=== PATIENT | female | born 1955 | race Caucasian/White ===

== ENCOUNTER → 2019-01-23 | Outpatient (CLI) | payer BC | END | disposition home or self-care (01) | LOC: LAB 19:15 → LAB SHORT 19:15 | PROVIDERS: Nurse Practitioner | DX: Z01.419 Encounter for gynecological examination (general) (routine) without abnormal findings (principal); N95.2 Postmenopausal atrophic vaginitis | CPT/HCPCS: G0145 ==

== ENCOUNTER → 2022-07-20 | Outpatient (CLI) | payer OTHER ==
[~2022-07-20] MED LIST: DICY20 PO; EUCRISA60 GM TOP; GLUCHON PO; LEVOTHYROXINE50 MC1 PO; METR59TL TOP; MULVITA PO; Neurontin 100100 MG PO; TRAM50 PO
== END | disposition home or self-care (01) ==
LOC: LAB SHORT 12:00
DX: B35.1 Tinea unguium (principal); B35.3 Tinea pedis; L40.51 Distal interphalangeal psoriatic arthropathy; L40.3 Pustulosis palmaris et plantaris; L60.2 Onychogryphosis
CPT/HCPCS: 87220

== ENCOUNTER → 2022-07-20 | Outpatient (CLI) | payer OTHER | LOC: LAB SHORT 07:59 → LAB 07:59 | DX: L60.2 Onychogryphosis (principal); B35.1 Tinea unguium | CPT/HCPCS: 88305; 88312 ==

== ENCOUNTER 2023-01-11 11:19 | Emergency (ER) | payer OTHER ==
[~2023-01-11] VITALS: Ht 165.1 cm; Wt 81.7 kg
[2023-01-11 11:27] VITALS: BP 179/104
[2023-01-11] MEDS ORDERED: TRAM50 PO (11:41)
[2023-01-11] MEDS ORDERED: EUTHYROX75 MC1 PO (11:41)
[2023-01-11] MEDS ORDERED: Prednisone20 MG PO (13:19)
== END 2023-01-11 13:30 | disposition home or self-care (01) ==
LOC: ER 11:19
DX: M25.532 Pain in left wrist (principal); X50.0XXA Overexertion from strenuous movement or load, initial encounter; Z79.890 Hormone replacement therapy; Z88.5 Allergy status to narcotic agent
CPT/HCPCS: 99283

== ENCOUNTER 2023-05-13 10:47 | Observation (INO) | payer OTHER ==
[~2023-05-13] VITALS: Ht 165.1 cm; Wt 88.0 kg
[~2023-05-13 10:47] MED LIST changes: +EUTHYROX75 MC1 PO; +Prednisone20 MG PO
[2023-05-13] MEDS ORDERED: CLOBETASOL EMOL15 G1 (11:27)
[2023-05-13] MEDS ORDERED: CEPH500 PO (11:27)
[2023-05-13] MEDS ORDERED: TRAM50 PO (11:30)
[2023-05-13 11:31] LABS: BASOPHILS ABSOLUTE AUTO 0.03 K/mm3 (0.00-0.23); BASOPHILS PERCENT AUTO 0 % (0-2); EOSINOPHILS ABSOLUTE AUTO 0.05 K/mm3 (0.00-0.68); EOSINOPHILS PERCENT AUTO 1 % (0-6); Hemoglobin 15.4 g/dL (11.5-16.0); IMMATURE GRAN ABSOLUTE AUTO 0.02 K/mm3 (0.00-0.10); IMMATURE GRAN PERCENT AUTO 0 % (0-1); LYMPHOCYTES ABSOLUTE AUTO 2.05 K/mm3 (0.84-5.20); LYMPHOCYTES PERCENT AUTO 22 % (21-46); MONOCYTES ABSOLUTE AUTO 0.78 K/mm3 (0.16-1.47); MONOCYTES PERCENT AUTO 8 % (4-13); Mean Corpuscular HGB 30.2 pg (26.0-34.0); Mean Corpuscular HGB Conc 33.5 g/dL (31.5-36.5); Mean Corpuscular Volume 90 fL (80-100); Mean Platelet Volume 9.7 fL (9.1-12.4); NEUTROPHILS ABSOLUTE AUTO 6.46 K/mm3 (1.96-9.15); NEUTROPHILS PERCENT AUTO 69 % (41-73); Platelet Count 261 K/mm3 (150-400); RDW Coefficient Variation 12.4 % (11.7-14.2); RDW Standard Deviation 41.3 fL (35.1-46.3); White Blood Cell Count 9.39 K/mm3 (4.00-11.30)
[2023-05-13 11:53] LABS: Albumin, Blood 3.9 g/dL (3.4-5.0); Albumin/Globulin Ratio 0.9 (0.8-1.8); Bilirubin, Total 0.5 mg/dL (0.1-1.0); Bun/Creatinine Ratio 18.2 (12.0-20.0); Calcium, Blood 8.7 mg/dL (8.5-10.1); Creatinine, Blood 0.71 mg/dL (0.40-1.00); Globulin, Blood 4.2 g/dL (2.2-4.0); Potassium, Blood 3.9 mmol/L (3.5-5.5); Total Protein, Blood 8.1 g/dL (6.4-8.2)
[2023-05-13 12:23] LABS: International Normalized Ratio 0.95
[2023-05-13 12:35] LABS: C-REACTIVE PROTEIN, EXT RANGE 1.72 mg/dL (0.000-0.300); Thyroid Stimulating Hormone 5.49 uIU/mL (0.360-4.800)
[2023-05-13 15:05] LABS: Source, Urine Clean Catch
[2023-05-13 15:09] LABS: Appearance, Urine Clear (Clear); Bilirubin, Urine Neg (Neg); Blood, Urine 2+ (Neg); Color, Urine Yellow (P-Yellow); Glucose Qualitative, Urine 1+ (Neg); Ketones, Urine Neg (Neg); Leukocyte Esterase, Urine Neg (Neg); Nitrite, Urine Neg (Neg); Protein, Urine 1+ (Neg); Urobilinogen, Urine NORM (Normal)
[2023-05-13 15:33] LABS: Bacteria Many /hpf; Hyaline Casts 0-2 /lpf (0-2); Mucus Light (0-Heavy); Squamous Epithelial Cells Few /hpf (Few)
--- NOTE | 2023-05-13 18:32 | NUR ---
PCU ADMIT / END OF SHIFT PT BROUGHT TO PCU-3 BY TORI FROM ER @ APPROX 1600. PT A&O X4. PT ABLE TO WEAKLY AMBULATE FROM [facility] TO PCU BED W/ SBA. PT REPORTS HEADACHE & NECK BEING STIFF W/ INABILITY TO TURN HEAD TO EITHER SIDE. PT REPORTING "NECK STIFFNESS STARTED WEDNESDAY. IT HURT TO TALK, MY THROAT BECAME SORE & THEN MY WHOLE HEAD HURT." PT VSS. SPO2 > 92% ON RA. MONITOR SHOWING AFIB/AFLUTTER, HR 80s-90s. PT W/ "ABSCESS ON MY BACK THAT WAS DRAINED 5 WEEKS AGO. IT NEVER HEALED & IT STILL DRAINS." PT ALSO W/ "ECZEMA ON MY HANDS, BUT I DON'T KNOW WHAT THE RASH ON MY FEET & LEGS IS." HANDS NOTED W/ RAIASED RED & WHITE RASH. FEET W/ RED UNRAISED RASH. PICTURES TAKEN W/ PT CONSENT & PLACED IN CHART. PT REPORTING MULTIPLE ATTEMPTS FOR LUMBAR PUNCTURE DONE IN ER. PT AGREEABLE TO ATTEMPT FOR LBP BE DONE AGAIN. RADIOLOGY & ANESTHESIA BOTH REPORTING INABILITY TO DO THIS EVENING, BUT WILL BE AVAILABLE TOMORROW. MD JAMESON UPDATED.
[2023-05-13 19:34] VITALS: BP 130/95
[2023-05-13 23:41] VITALS: BP 114/78
[2023-05-14 03:45] LABS: BASOPHILS ABSOLUTE AUTO 0.01 K/mm3 (0.00-0.23); BASOPHILS PERCENT AUTO 0 % (0-2); EOSINOPHILS PERCENT AUTO 0 % (0-6); Hematocrit 40.4 % (33.0-51.0); Hemoglobin 13.7 g/dL (11.5-16.0); IMMATURE GRAN ABSOLUTE AUTO 0.03 K/mm3 (0.00-0.10); IMMATURE GRAN PERCENT AUTO 0 % (0-1); LYMPHOCYTES ABSOLUTE AUTO 1.21 K/mm3 (0.84-5.20); LYMPHOCYTES PERCENT AUTO 13 % (21-46); MONOCYTES ABSOLUTE AUTO 0.51 K/mm3 (0.16-1.47); MONOCYTES PERCENT AUTO 6 % (4-13); Mean Corpuscular HGB 30.4 pg (26.0-34.0); Mean Corpuscular HGB Conc 33.9 g/dL (31.5-36.5); Mean Corpuscular Volume 90 fL (80-100); NEUTROPHILS ABSOLUTE AUTO 7.59 K/mm3 (1.96-9.15); NEUTROPHILS PERCENT AUTO 81 % (41-73); Platelet Count 250 K/mm3 (150-400); RDW Coefficient Variation 12.4 % (11.7-14.2); RDW Standard Deviation 40.7 fL (35.1-46.3); Red Blood Cell Count 4.51 M/mm3 (3.80-5.20); White Blood Cell Count 9.35 K/mm3 (4.00-11.30)
[2023-05-14 04:15] LABS: Albumin, Blood 3.4 g/dL (3.4-5.0); Albumin/Globulin Ratio 0.9 (0.8-1.8); Bilirubin, Total 0.6 mg/dL (0.1-1.0); Bun/Creatinine Ratio 21.9 (12.0-20.0); Calcium, Blood 8.7 mg/dL (8.5-10.1); Creatinine, Blood 0.59 mg/dL (0.40-1.00); Globulin, Blood 3.8 g/dL (2.2-4.0); Potassium, Blood 4.4 mmol/L (3.5-5.5); Total Protein, Blood 7.2 g/dL (6.4-8.2)
[2023-05-14 04:57] VITALS: BP 131/94
--- NOTE | 2023-05-14 05:31 | NUR ---
ASSUMED CARE OF PT 05/13/23 @ 1900. NO ACUTE EVENTS OVERNIGHT. VSS. PT MEDICATED FOR HEADACHE TWICE OVER THE SHIFT. PT REPORTS NAUSEA THIS AM, GIVEN CRACKERS AND 7UP, WHICH IS EFFECTIVE. NO OTHER NEEDS. PT IS ABLE TO USE CALL LIGHT FOR NEEDS, CALL LIGHT IN REACH. WILL GIVE REPORT TO ONCOMING SHIFT RN.
[2023-05-14 09:37] VITALS: BP 127/84
[2023-05-14 11:56] LABS: Automated CSF WBC Count 0.004 K/mm3 (0-5)
[2023-05-14 12:03] LABS: Automated CSF WBC Count 0.003 K/mm3 (0-5)
[2023-05-14 12:27] VITALS: BP 127/84
--- NOTE | 2023-05-14 12:28 | NUR ---
PT WITH REPORTED NAUSEA, SHE STATES THAT "NAUSEA MEDS DON'T REALLY WORK ON ME" WHEN OFFERED TO CALL MD ABOUT NAUSEA MEDICATIONS
[2023-05-14 12:36] LABS: WBC Count, CSF 3 /mm3 (0-5); WBC Count, CSF 4 /mm3 (0-5)
[2023-05-14 12:53] LABS: Cryptococcus Neoformans/Gattii Not Detected (NOT DETECT); Enterovirus Not Detected (NOT DETECT); Escherichia Coli K1 Not Detected (NOT DETECT); Haemophilus Influenza Not Detected (NOT DETECT); Herpes Simplex Virus 1 Not Detected (NOT DETECT); Herpes Simplex Virus 2 Not Detected (NOT DETECT); Human Herpesvirus 6 Not Detected (NOT DETECT); Human Parechovirus Not Detected (NOT DETECT); Listeria Monocytogenes Not Detected (NOT DETECT); Neisseria Meningitidis Not Detected (NOT DETECT); Streptococcus Agalactiae Not Detected (NOT DETECT); Streptococcus Pneumoniae Not Detected (NOT DETECT); Varicella Zoster Virus Not Detected (NOT DETECT)
[2023-05-14 13:15] LABS: RBC Count, CSF 32 /mm3 (0-0)
[2023-05-14 13:16] LABS: RBC Count, CSF 53 /mm3 (0-0)
[2023-05-14 13:18] LABS: Appearance, CSF Clear (Clear); Color, CSF No Color (No Color)
[2023-05-14 13:19] LABS: Appearance, CSF Clear (Clear); Color, CSF No Color (No Color)
--- NOTE | 2023-05-14 15:27 | NUR ---
PT A/O X4. SHE IS ABLE TO USE CALL LIGHT APPROPRIATELY, ABLE TO MAKE NEEDS KNOWN. SHE WENT FOR LUMBAR PUNCTURE THIS AM, RESULTS ARE NEGATIVE FOR MENENGITIS, SHE IS REMOVED FROM ISOLATION. A CTA OF HEAD IS ORDERED. SHE IS ABLE TO TRANSFER WITH STEADY GAIT. SHE REPORTS SOME NAUSEA TODAY BUT REFUSED NAUSEA MEDICATIONS STATING THEY DO NOT WORK WELL FOR HER. NAUSEA AND BLAND IMPROVE WITH DECADRON BUT DO NOT RESOLVE. SHE REMAINS WITH VERY DECREASED ROM OF NECK, SHE CONTINUES TO REPORT PAIN WITH FLEXION OF HEAD. PERRL. AFIB NOTED ON MONITOR PRIOR TO D/C OF TELE. SHE DENIES CP OR SOB
[2023-05-14 15:31] VITALS: BP 140/90
[2023-05-14 21:00] VITALS: BP 121/97
[2023-05-14 23:56] VITALS: BP 144/96
--- NOTE | 2023-05-15 03:37 | NUR ---
SHIFT SUMMARY NO ACUTE CHANGES TO REPORT OVERNIGHT, PT REPORTS THAT STIFFNESS IN HER NECK HAS RESOLVED COMPLETELY, BUT THAT SHE DOES HAVE SOME RESIDUAL SORENESS. PT DENIES PAIN ANYWHERE ELSE. NO COMPLAINTS OF NAUSEA. ECZEMA RASH ON HANDS, AND SMALL RASH ON LLE THAT PT REPORTS IS DIFFERENT FROM HER ECZEMA. NEGATIVE FOR MENEGITIS. VITALS HAVE BEEN STABLE. PLAN IS FOR POSSIBLE DC TODAY.
[2023-05-15 04:16] LABS: BASOPHILS ABSOLUTE AUTO 0.01 K/mm3 (0.00-0.23); BASOPHILS PERCENT AUTO 0 % (0-2); EOSINOPHILS PERCENT AUTO 0 % (0-6); Hematocrit 40.4 % (33.0-51.0); Hemoglobin 13.5 g/dL (11.5-16.0); IMMATURE GRAN ABSOLUTE AUTO 0.05 K/mm3 (0.00-0.10); IMMATURE GRAN PERCENT AUTO 1 % (0-1); LYMPHOCYTES ABSOLUTE AUTO 1.67 K/mm3 (0.84-5.20); LYMPHOCYTES PERCENT AUTO 15 % (21-46); MONOCYTES ABSOLUTE AUTO 0.68 K/mm3 (0.16-1.47); MONOCYTES PERCENT AUTO 6 % (4-13); Mean Corpuscular HGB 30.1 pg (26.0-34.0); Mean Corpuscular HGB Conc 33.4 g/dL (31.5-36.5); Mean Corpuscular Volume 90 fL (80-100); Mean Platelet Volume 9.8 fL (9.1-12.4); NEUTROPHILS ABSOLUTE AUTO 8.42 K/mm3 (1.96-9.15); NEUTROPHILS PERCENT AUTO 78 % (41-73); Platelet Count 260 K/mm3 (150-400); RDW Coefficient Variation 12.4 % (11.7-14.2); Red Blood Cell Count 4.49 M/mm3 (3.80-5.20); White Blood Cell Count 10.83 K/mm3 (4.00-11.30)
[2023-05-15 04:30] VITALS: BP 128/76
[2023-05-15 04:50] LABS: Bun/Creatinine Ratio 22.5 (12.0-20.0); Calcium, Blood 8.9 mg/dL (8.5-10.1); Creatinine, Blood 0.62 mg/dL (0.40-1.00); Potassium, Blood 4.4 mmol/L (3.5-5.5)
[2023-05-15 09:00] VITALS: BP 107/74
[2023-05-15] MEDS ORDERED: METO25ER PO (13:20)
[2023-05-15] MEDS ORDERED: PRED20 PO (13:21)
--- NOTE | 2023-05-15 14:26 | NUR ---
PT REFUSES METOPROLOL, SHE IS THROUGHLY EDUCATED ABOUT IT'S PURPOSE SHE STATES THAT SHE PREFERS TO FOLLOW UP WITH HER DR ABOUT NEED FOR A BETA ELIO FOR A-FIB CONTROL. HER FEDERICO IS REMOVED BY JARED CHERY AND PRESSURE DRESSED. SHE EXPRESSED UNDERSTANDING OF D/C TEACHING AND DENIES FURTHER NEEDS
== END 2023-05-15 13:55 | disposition home or self-care (01) ==
LOC: ER 10:47 → PCU 10:48
PROVIDERS: Emergency Medicine; Physician Assistant; ADMIT Internal Medicine
DX: I48.91 Unspecified atrial fibrillation (principal); R51.9 Headache, unspecified; E06.3 Autoimmune thyroiditis; E78.5 Hyperlipidemia, unspecified; D69.2 Other nonthrombocytopenic purpura; N18.31 Chronic kidney disease, stage 3a; Z88.5 Allergy status to narcotic agent; E87.20 Acidosis, unspecified
CPT/HCPCS: 36415; 62270; 62328; 70450; 70496; 80048; 80053; 81001; 82945; 83605; 84157; 84439; 84443; 85025; 85610; 85730; 86140; 87040; 87070; 87086; 87205; 87483; 89051; 93005; 93010; 93306; 94762; 96361-59; 96365-59; 96367-59; 96375; 96375-59; 96376; 99285-25; A9270; G0378; J0696; J0780; J1100; J3370; J7030; J7050; J7512; Q9967

== ENCOUNTER → 2023-09-27 | Outpatient (CLI) | payer OTHER ==
[~2023-09-27] MED LIST changes: +CEPH500 PO; +CLOBETASOL EMOL15 G1; +METO25ER PO; +PRED20 PO
== END ==
LOC: LAB EV 11:29
DX: B35.2 Tinea manuum (principal)
CPT/HCPCS: 87070; 87075; 87205